=== PATIENT | male | born 1980 | race Caucasian/White ===

== ENCOUNTER 2017-09-23 18:59 | Emergency (ER) | payer OTHER ==
[~2017-09-23] VITALS: Ht 182.9 cm; Wt 90.7 kg
[~2017-09-23 18:59] MED LIST: CIPRO250 M1 PO; CIPROFLOXACIN500 M1 PO; NORCO 7.5-3251 EACH PO; VICODIN 5-5001 EACH PO
[2017-09-23] MEDS ORDERED: KEFLEX500 M1 PO (19:47)
[2017-09-23] MEDS ORDERED: BACTRIM DS TAB1 EACH PO (19:47)
[2017-09-23] MEDS ORDERED: MOBIC7.5 MG PO (19:47)
[2017-09-23] MEDS ORDERED: HYDROCODONE-AP1 EAC6 PO (19:47)
[2017-09-23 20:22] VITALS: BP 138/72
== END 2017-09-23 20:23 | disposition left against medical advice (07) ==
LOC: M.ERS 18:59
DX: L02.31 Cutaneous abscess of buttock (principal); Z88.0 Allergy status to penicillin